=== PATIENT | female | born 1940 | race Two or more races ===

== ENCOUNTER → 2020-07-31 | Outpatient (CLI) | payer OTHER ==
[~2020-07-31] MED LIST: GLIP10TA13 PO; LOSA100T14 PO; METF10007 PO
--- NOTE | 2020-07-31 13:38 | RAD ---
3 views of the lumbar spine without comparison for back pain. FINDINGS: There is straightening of normal lumbar lordosis. No alignment abnormality is seen. Multilevel degenerative disc disease is present with anterior and posterior osteophytes seen at several levels and bulky facet arthrosis within the lower levels. Aortic atherosclerosis is seen. IMPRESSION: 1. No fracture or acute osseous abnormality. 2. Moderate to severe multilevel disc disease and facet arthrosis. Electronically signed by: Eagle Meza MD (07/31/2020 1:35 PM) [id number]
== END | disposition home or self-care (01) ==
LOC: RAD 10:41
PROVIDERS: ATTEND Family Medicine
DX: M47.816 Spondylosis without myelopathy or radiculopathy, lumbar region (principal); M51.36 Other intervertebral disc degeneration, lumbar region; I70.0 Atherosclerosis of aorta
CPT/HCPCS: 72100